=== PATIENT | male | born 1995 | race Caucasian/White ===

== ENCOUNTER 2022-03-26 08:37 | Emergency (ER) | payer SELFPAY ==
[2022-03-26] MEDS ORDERED: Tetracaine HCl/PF 0.5% 4 ML Bottle EYERT ONE (09:03)
[2022-03-26] MEDS ORDERED: Fluorescein 1 MG Ophth Strip EYERT ONE (09:04)
[2022-03-26] MEDS ORDERED: Erythromycin Base 0.5% Ophth Oint 1 GM Tube EYERT ONE (09:44)
== END 2022-03-26 09:55 | disposition home or self-care (01) ==
LOC: MW.ED 08:37
DX: S05.01XA Injury of conjunctiva and corneal abrasion without foreign body, right eye, initial encounter (principal); Z88.0 Allergy status to penicillin; W22.8XXA Striking against or struck by other objects, initial encounter
CPT/HCPCS: 99283; A9270

== ENCOUNTER 2022-06-18 09:05 | Emergency (ER) | payer BC ==
[2022-06-18] MEDS ORDERED: Heparin Sodium 5,000 Units/ML Vial IVPUSH STA (10:40)
[2022-06-18] MEDS ORDERED: Heparin Sodium/0.45% NaCl 500 ML IV STA (10:41)
== END 2022-06-18 14:17 | disposition home or self-care (01) ==
LOC: MW.ED 09:05
DX: S90.32XA Contusion of left foot, initial encounter (principal); Z88.0 Allergy status to penicillin; W13.2XXA Fall from, out of or through roof, initial encounter
CPT/HCPCS: 73590-26-LT; 73590-26-RT; 73590-LT; 73590-RT; 73650-26-LT; 73650-26-RT; 73650-LT; 73650-RT; 73700-26-LT; 73700-26-RT; 73700-LT; 73700-RT; 99284

== ENCOUNTER 2024-02-06 19:53 | Emergency (ER) | payer SELFPAY ==
[2024-02-06] MEDS: Doxycycline 100 MG Cap PO ONE (20:08)
== END 2024-02-06 20:15 | disposition home or self-care (01) ==
LOC: MW.ED 19:53
DX: L03.312 Cellulitis of back [any part except buttock and flank] (principal); Z88.0 Allergy status to penicillin; Z86.16 Personal history of COVID-19; Z79.899 Other long term (current) drug therapy; Z75.8 Other problems related to medical facilities and other health care
CPT/HCPCS: 99283; A9270

== ENCOUNTER 2024-02-09 18:27 | Emergency (ER) | payer SELFPAY | END 2024-02-09 20:00 | disposition home or self-care (01) | LOC: MW.ED 18:27 | DX: L02.212 Cutaneous abscess of back [any part, except buttock and flank] (principal); Z86.16 Personal history of COVID-19; Z88.0 Allergy status to penicillin; Z75.8 Other problems related to medical facilities and other health care | CPT/HCPCS: 10060; 99282-25; 99283 ==